=== PATIENT | female | born 1955 | race Caucasian/White ===

== ENCOUNTER 2023-09-06 11:21 | Emergency (ER) | payer OTHER, SELFPAY ==
[2023-09-06 11:27] VITALS: BP 177/82
--- NOTE | 2023-09-06 12:28 | ED.MUSCINJ ---
HPI-Injury
General
Chief Complaint: Musculo-Skeletal Complaint
Source: patient
Exam Limitations: none
Time Seen by Provider: 09/06/23 11:51
Nursing documentation reviewed up to this point in time: agreed with
History of Present Illness-Injury
Initial Injury comments:
67 yo female with hx low back surgery at [facility] 6 yrs ago, chronic intermittent low back pain with sciatica, presents with right low back pain radiating down buttock to back of thigh for past 4-5 days. No recollection of overuse or injury. No saddle
anesthesia, no weakness in her legs, no loss of bowel or bladder control saw PCP yesterday and given Medrol dose pack. She took 20 of the 60 mg today and has been using Aleve and Tramadol with little relief. She was hoping to get an injection in
her back today. I explained to her that we do not do that in the ER. She states they are leaving in 2 days to go on a 5-hour trip to [facility].
Past History
Past History
ED Past Medical History: Hypercholesterolemia
ED Past Surgical History: Gynecological (Hysterectomy) and Orthopedic (L-S back surgery 2018)
Review of Systems
Review of Systems
Allergies reviewed?: Yes
All Other Systems: ROS reviewed and negative except as documented in HPI and ROS
Constitutional: Denies fever
ABD/GI: Denies abdominal pain
: Denies frequency, incontinence or difficulty voiding
Musculoskeletal: Reports back pain (Right low back pain radiating down right buttock to back of right thigh.)
Skin: Reports no symptoms
Neurological: Reports no symptoms
Phy Exam
Physical Exam
Physical Exam:
GENERAL: No acute distress. A&Ox3.
CONSTITUTIONAL: Afebrile.
RESPIRATORY: Regular respirations, nonlabored, lungs clear.
CARDIOVASCULAR: Regular rate and rhythm, no murmurs, no rubs.
GI: Soft, nontender
MUSCULOSKELETAL: Tender right lower back and upper buttock. R SLR to 45 degrees. No pain with L SLR. With knees flexed both adduction and abduction do not elicit pain. Moves with ease. Well perfused.
SKIN: Warm, dry, pink
PSYCH: Normal mood and affect. Well kept, interactive and appropriate
NEUROLOGIC: Awake, alert and oriented. No focal neurological deficits. Strength 5/5 bilateral LEs. Pt ambulating with steady gait.
MDM/Problems Addressed
Differential Diagnosis Includes:
low back strain, sciatica
MDM/Problems Addressed:
67 yo female with hx low back surgery at [facility] 6 yrs ago, chronic intermittent low back pain with sciatica, presents with right low back pain radiating down buttock to back of thigh for past 4-5 days. No recollection of overuse or injury. No saddle
anesthesia, no weakness in her legs, no loss of bowel or bladder control saw PCP yesterday and given Medrol dose pack. She took 20 of the 60 mg today and has been using Aleve and Tramadol with little relief. She was hoping to get an injection in
her back today. I explained to her that we do not do that in the ER. She states they are leaving in 2 days to go on a 5-hour trip to [facility].
No need for imaging as there was no trauma, no neuro deficits, no cauda equina.
Pt main concern is the fact that she' going away.
Informed that she may not have improvement for 2-3 days on the steroid. Told to finish her Medrol dose pack, take Aleve and her Tramadol as ordered
Will give pt an rx for another prednisone taper as needed to take with her on her trip.
She was referred to Ortho and Pain management.
She was very appreciative of the care
Pt ambulated out upon discharge
*Critical Care Note
Total Time (30-74mins, 75-104mins- exclusive of procedures): Not Applicable
ED Attending Note
-
Portions of this chart may have been created with voice recognition software.� Occasional wrong word or��sound alike� substitutions may have occurred due to the inherent limitations of voice recognition software.
Discharge Plan
Departure
Patient Disposition: Home (Routine Discharge)
Date of Disposition: 09/06/23
Time of Disposition: 12:23
Patient with high blood pressure during this ER visit?: Yes
Condition: Good
Discharge Problem:
Acute right-sided low back pain with sciatica
Instructions: Low Back Pain (DC), Sciatica Exercises, Sciatica ED
Prescriptions:
New
prednisone 10 mg Tablet
See Rx Instructions .ROUTE .COMPLEX Qty: 30 0RF
Rx Instructions:
Take By Mouth:
40 mg daily x3 days, 30 mg daily x3 days,
20 mg daily x3 days, 10 mg daily x3 days.
Referrals:
Tamara Kraus DO [Active] - Next open appointment
Eugenio Guevara DO [Family Provider] -
Hira Jamison MD [Active] - Next open appointment
Activity Restrictions/Additional Instructions:
As we discussed, I sent a prescription to your pharmacy for another prednisone taper.
Use your Aleve for mild to moderate pain and your tramadol for worse pain
Since you are traveling a long distance, get out of the car every hour and move around and stretch.
Dr. Armenta is a pain management doctor
Dr. Kraus is an orthopedic doctor
Interventions
Interventions:
*Risk Screen - Suicide Last Done: 09/06/23 11:23
*General Assessment Last Done: 09/06/23 11:23
*Neglect/Abuse Screening Last Done: 09/06/23 11:23
ED- Fall Risk Assessment Last Done: 09/06/23 11:37
*ED COVID-19 Vaccine History Last Done: 09/06/23 12:39
*Nursing Disposition Last Done: 09/06/23 12:39
ED-Musculoskeletal Assessment Last Done: 09/06/23 11:37
Discharge Date and Time
Discharge Date/Time: 09/06/23 12:40
Print Language: MACEDONIAN
[2023-09-06 12:38] VITALS: BP 152/93
== END 2023-09-06 12:40 | disposition home or self-care (01) ==
LOC: EMR 11:21
PROVIDERS: EMERGENCY PHYSICIAN Emergency Medicine; FAMILY PHYSICIAN Family Medicine
DX: M54.41 Lumbago with sciatica, right side (principal); E78.00 Pure hypercholesterolemia, unspecified
CPT/HCPCS: 99283

== ENCOUNTER → 2023-09-21 06:33 | Outpatient (REF) | payer OTHER, SELFPAY | LOC: HWRAD 06:33 | PROVIDERS: ATTENDING PHYSICIAN Family Medicine; REFERRING PHYSICIAN Physical Medicine & Rehabilitation | DX: M54.50 Low back pain, unspecified (principal) | CPT/HCPCS: 72110 ==

== ENCOUNTER → 2023-12-16 09:43 | Outpatient (REF) | payer MEDICARE, OTHER, SELFPAY | LOC: HWRAD 09:43 | PROVIDERS: ATTENDING PHYSICIAN Internal Medicine; FAMILY PHYSICIAN Family Medicine | DX: K43.9 Ventral hernia without obstruction or gangrene (principal) | CPT/HCPCS: 76705 ==